=== PATIENT | male | born 1990 | race American Indian/Alaskan Native ===

== ENCOUNTER 2022-02-07 11:58 | Emergency (ER) | payer MEDICAID ==
--- NOTE | 2022-02-07 13:25 | XRay Report ---
. LEFT FOREARM 2 VIEW(S) INDICATION / CLINICAL INFORMATION: injury, swelling COMPARISON: None available. FINDINGS: BONES / JOINT(S): Acute mildly displaced fracture involving the radial head and neck with associated elbow hemarthrosis No significant arthritis. SOFT TISSUES: No significant abnormality. ADDITIONAL FINDINGS: None. IMPRESSION: 1. Acute mildly displaced left radial head and neck fracture Signer Name: Amol Ahuja MD Signed: 02/07/2022 1:21 PM Workstation Name: [id number]
[2022-02-07] MEDS ORDERED: ACETAMINOPHEN W/CODEINE 300-30 MG TAB PO ONE (14:27)
[2022-02-07] MEDS ORDERED: KETOROLAC 10 MG TAB PO ONE (14:27)
--- NOTE | 2022-02-07 14:32 | Emergency Department Report ---
ED Upper Extremity Inj HPI - General Chief Complaint: Extremity Injury, Upper Stated Complaint: FALL/LT ARM INJURY Time Seen by Provider: 02/07/22 13:52 Source: patient Mode of arrival: Ambulatory Limitations: No Limitations - History of Present Illness Initial Comments: 31-year-old black male with no past medical history presents to the emergency department for evaluation of left elbow pain. He states that he fell while walking this morning, denies loss of consciousness, but states that he landed on his elbow and has been having pain and swelling since then. Complaint: Injury to:: left, elbow -: Sudden, hour(s) Other Extremity Injury: Elbow: Left Other Injuries: none Place: outdoors Severity scale (0 -10): 6 Improves With: none Worsens With: movement of extremity Context: fall Associated Symptoms: denies other symptoms - Related Data Previous Rx's Medication Instructions Recorded Last Taken Type Acetaminophen/Codeine [Tylenol 1 tab PO Q6H PRN #12 tab 02/07/22 Unknown Rx /Codeine # 3 tab] Naproxen [Naprosyn] 500 mg PO BID #14 tab 02/07/22 Unknown Rx Allergies Allergy/AdvReac Type Severity Reaction Status Date / Time No Known Allergies Allergy Unverified 02/07/22 12:54 ED Review of Systems ROS: Stated complaint: FALL/LT ARM INJURY Other details as noted in HPI Comment: All other systems reviewed and negative Constitutional: denies: chills, fever, malaise, weakness Eyes: denies: eye discharge ENT: denies: congestion Respiratory: denies: shortness of breath Cardiovascular: denies: chest pain, palpitations Gastrointestinal: denies: abdominal pain, nausea, vomiting Musculoskeletal: denies: back pain Neurological: denies: headache, weakness ED Past Medical Hx - Past Medical History Previous Medical History?: No - Surgical History Past Surgical History?: No - Medications Home Medications: Home Medications Medication Instructions Recorded Confirmed Last Taken Type Acetaminophen/Codeine [Tylenol 1 tab PO Q6H PRN #12 tab 02/07/22 Unknown Rx /Codeine # 3 tab] Naproxen [Naprosyn] 500 mg PO BID #14 tab 02/07/22 Unknown Rx ED Physical Exam - General Limitations: No Limitations General appearance: alert, in no apparent distress - Head Head exam: Present: atraumatic, normocephalic - Eye Eye exam: Present: normal appearance. Absent: conjunctival injection - Neck Neck exam: Present: normal inspection - Respiratory Respiratory exam: Absent: respiratory distress - Cardiovascular Cardiovascular Exam: Present: regular rate - GI/Abdominal GI/Abdominal exam: Absent: distended - Expanded Upper Extremity Exam Left Elbow exam: Present: tenderness, swelling, pain w/ pronation/supination, tenderness over radial head. Absent: normal inspection, full ROM, abrasion, laceration, ecchymosis, deformity, crepidus, dislocation, erythema, effusion Hand Wrist exam: Present: normal inspection Neuro motor exam: Present: wrist extension intact, fingers 2-5 abduction intact Vascular: Present: normal capillary refill, radial pulse. Absent: vascular compromise, Pallo, pulse deficit radial art - Back Exam Back exam: Present: normal inspection - Neurological Exam Neurological exam: Present: alert, oriented X3 - Psychiatric Psychiatric exam: Present: normal affect, normal mood - Skin Skin exam: Present: warm, dry, intact, normal color ED Course Vital Signs 02/07/22 02/07/22 12:49 16:50 Temperature 98.3 F 98.6 F Pulse Rate 80 78 Respiratory 18 16 Rate Blood Pressure 168/84 154/92 [Left] O2 Sat by Pulse 95 98 Oximetry - Orthopedic Splinting/Casting Injury #1 Side: left Upper Extremity Injury Location: elbow Upper Extremity Immobilizer: posterior splint Other Orthopedic Equipment: other (Sling) Additional Comments: Splint placed at 90 degree angle, CMS intact after application. Patient tolerated well. ED Medical Decision Making - Radiology Data Radiology results: report reviewed, image reviewed Left forearm x-ray: FINDINGS: BONES / JOINT(S): Acute mildly displaced fracture involving the radial head and neck with associated elbow hemarthrosis No significant arthritis. SOFT TISSUES: No significant abnormality. ADDITIONAL FINDINGS: None. IMPRESSION: 1. Acute mildly displaced left radial head and neck fracture - Medical Decision Making 31-year-old black male with no past medical history presents to the emergency department for evaluation of left elbow pain. He states that he fell while walking this morning, denies loss of consciousness, but states that he landed on his elbow and has been having pain and swelling since then Left forearm x-ray positive for mildly displaced radial head neck fracture. Minimal swelling noted. Patient able to do range of motion with minimal pain. Patient placed in posterior splint per my procedure note. He is advised to follow-up with orthopedics in the next 3 to 4 days for further evaluation and management. He is advised to return to the emergency department as needed. He verbalizes understanding of and agreement with plan of care. Critical care attestation.: If time is entered above; I have spent that time in minutes in the direct care of this critically ill patient, excluding procedure time. ED Disposition Clinical Impression: Fracture of radial neck, closed Qualifiers: Encounter type: initial encounter Fracture alignment: displaced Laterality: left Qualified Code(s): S52.132A - Displaced fracture of neck of left radius, initial encounter for closed fracture Left radial head fracture Qualifiers: Encounter type: initial encounter Fracture type: closed Fracture alignment: displaced Qualified Code(s): S52.122A - Displaced fracture of head of left radius, initial encounter for closed fracture Disposition: 01 HOME / SELF CARE / HOMELESS Is pt being admited?: No Does the pt Need Aspirin: No Condition: Stable Instructions: Cast or Splint Care, Adult, [id number], Radial Fracture Rehab- [facility], Forearm Fracture Rehab-[facility], Radial Head Fracture, [id number] Additional Instructions: Take medications as prescribed. Follow-up with orthopedics next week for further evaluation and management. Return to the emergency department as needed. Prescriptions: Naproxen [Naprosyn] 500 mg PO BID #14 tab Acetaminophen/Codeine [Tylenol /Codeine # 3 tab] 1 tab PO Q6H PRN #12 tab PRN Reason: Pain , Severe (7-10) Referrals: EDWIN CINTRON MD [Staff Physician] - 3-5 Days Forms: Work/School Release Form(ED) Time of Disposition: 16:23
[2022-02-07 16:52] VITALS: BP 154/92
== END 2022-02-07 16:50 | disposition home or self-care (01) ==
LOC: ED 11:58
DX: S52.132A Displaced fracture of neck of left radius, initial encounter for closed fracture (principal); S52.122A Displaced fracture of head of left radius, initial encounter for closed fracture; X58.XXXA Exposure to other specified factors, initial encounter; Y93.89 Activity, other specified; Y92.89 Other specified places as the place of occurrence of the external cause; Y99.8 Other external cause status
CPT/HCPCS: 99283